=== PATIENT | female | born 1935 | race Caucasian/White ===

== ENCOUNTER 2018-09-19 16:59 | Inpatient (IN) | payer MEDICARE, BC ==
[~2018-09-19] VITALS: Ht 172.7 cm; Wt 99.1 kg
[2018-09-19] MEDS ORDERED: RENVELA800 MG PO (17:07)
[2018-09-19] MEDS ORDERED: KLOR-CON 1010 MEQ PO (17:07)
[2018-09-19] MEDS ORDERED: RANITIDINE HCL150 M1 PO (17:07)
[2018-09-19] MEDS ORDERED: ELIQUIS2.5 MG PO (17:07)
[2018-09-19] MEDS ORDERED: ZYLOPRIM300 MG PO (17:07)
[2018-09-19] MEDS ORDERED: VENTOLIN HFA18 GM INH (17:07)
[2018-09-19] MEDS ORDERED: TORSEMIDE20 MG PO (17:08)
[2018-09-19] MEDS ORDERED: HYDROCODON-ACE1 EAC7 PO (17:08)
[2018-09-19] MEDS ORDERED: HYDROXYZINE HCL10 MG PO (17:08)
[2018-09-19] MEDS ORDERED: SYNTHROID25 MCG PO (17:09)
[2018-09-19 18:19] VITALS: BP 163/68
[2018-09-19] MEDS ORDERED: COREG12.5 MG PO (20:49)
[2018-09-19] MEDS ORDERED: FISH OIL 1,0001 CA1 PO (20:49)
[2018-09-19 21:39] VITALS: BP 166/65
[2018-09-19 22:31] VITALS: BMI 36.5
[2018-09-20 04:00] VITALS: BP 150/63
[2018-09-20 06:24] LABS: BASOPHILS 1.1 % (0-2); EOSINOPHILS 3.4 % (0-7); HEMATOCRIT 30.3 % (36.0-48.0); HEMOGLOBIN 9.4 g/dL (12-16); IMMATURE GRANULOCYTES 0.2 % (0-5); MCH 30.3 pg (26.0-34.0); MCV 97.7 fL (80.0-100.0); MEAN PLATELET VOLUME 11.8 fL (7.4-10.4); MONOCYTES 11.6 % (2-11); NEUTROPHILS 67.7 % (40-80); PLATELET COUNT 121 10x3/uL (130-400); WBC 4.8 10x3/uL (4.8-10.8)
[2018-09-20 07:22] LABS: ANION GAP 17.1 mmol/L (8-16); CALCIUM 10.3 mg/dL (8.5-10.1); CARBON DIOXIDE 25.1 mmol/L (21.0-32.0); CREATININE - SERUM 3.9 mg/dL (0.6-1.3); PHOSPHOROUS 3.3 mg/dL (2.5-4.9); POTASSIUM - SERUM 4.2 mmol/L (3.5-5.1); THYROID STIMULATING HORMONE 3.87 uIU/mL (0.36-3.74)
[2018-09-20 07:36] VITALS: BP 153/62
[2018-09-20 11:12] VITALS: BP 106/89
[2018-09-20 15:13] VITALS: BP 147/58
[2018-09-20 20:00] VITALS: BP 135/71
[2018-09-21 04:00] VITALS: BP 142/70
[2018-09-21 05:25] LABS: EOSINOPHILS 5.5 % (0-7); HEMATOCRIT 33.3 % (36.0-48.0); HEMOGLOBIN 10.1 g/dL (12-16); IMMATURE GRANULOCYTES 0.2 % (0-5); LYMPHOCYTES 16.8 % (15-50); MCH 30.1 pg (26.0-34.0); MCHC 30.3 g/dL (31.0-37.0); MCV 99.1 fL (80.0-100.0); MEAN PLATELET VOLUME 12.1 fL (7.4-10.4); MONOCYTES 11.5 % (2-11); PLATELET COUNT 126 10x3/uL (130-400); RBC 3.36 10x6/uL (4.00-5.40); RDW 16.2 % (11.5-14.5); WBC 4.9 10x3/uL (4.8-10.8)
[2018-09-21 05:53] LABS: ANION GAP 12.8 mmol/L (8-16); CALCIUM 10.4 mg/dL (8.5-10.1); CARBON DIOXIDE 27.2 mmol/L (21.0-32.0); CREATININE - SERUM 3.7 mg/dL (0.6-1.3); PHOSPHOROUS 3.4 mg/dL (2.5-4.9)
[2018-09-21 07:32] VITALS: BP 172/76
[2018-09-21 11:30] VITALS: BP 148/64
[2018-09-21 12:36] VITALS: Ht 172.7 cm; Wt 99.1 kg
[2018-09-21 15:01] VITALS: BP 165/69
[2018-09-21 20:54] VITALS: BP 160/76
[2018-09-22] VITALS: BP 147/79
[2018-09-22 05:08] VITALS: BP 136/71
[2018-09-22 06:01] LABS: BASOPHILS 1.3 % (0-2); EOSINOPHILS 6.1 % (0-7); HEMATOCRIT 32.7 % (36.0-48.0); IMMATURE GRANULOCYTES 0.4 % (0-5); LYMPHOCYTES 16.9 % (15-50); MCHC 30.6 g/dL (31.0-37.0); MCV 98.2 fL (80.0-100.0); MONOCYTES 11.4 % (2-11); NEUTROPHILS 63.9 % (40-80); PLATELET COUNT 128 10x3/uL (130-400); RBC 3.33 10x6/uL (4.00-5.40); RDW 15.8 % (11.5-14.5); WBC 4.6 10x3/uL (4.8-10.8)
[2018-09-22 06:16] LABS: ANION GAP 13.9 mmol/L (8-16); CALCIUM 10.3 mg/dL (8.5-10.1); CARBON DIOXIDE 27.8 mmol/L (21.0-32.0); CREATININE - SERUM 3.8 mg/dL (0.6-1.3); PHOSPHOROUS 2.9 mg/dL (2.5-4.9); POTASSIUM - SERUM 3.7 mmol/L (3.5-5.1)
[2018-09-22 09:08] VITALS: BP 136/73
[2018-09-22 12:48] VITALS: BP 155/60
--- NOTE | 2018-09-22 13:57 | EC ---
PATIENT:MAYTE QUEEN DATE OF SERVICE: 09/19/18 SEX: F MEDICAL RECORD: [id number] DATE OF : 33 LOCATION:D.M2 D.212 AGE OF PATIENT: 83 ADMISSION DATE: 09/19/18 REFERRING PHYSICIAN: INTERPRETING PHYSICIAN: AVELINO ROD MD ECHOCARDIOGRAM REPORT ECHO CHARGES 4 ECHO COMPLETE Date: 09/20/18 CLINICAL DIAGNOSIS: CHF ECHOCARDIOGRAPHIC MEASUREMENTS (adult normal given) AC root (d.<3.7cm) 3.4 cm LV Septum d (<1.2 cm> 0.9 cm Valve Excursion 1.5 cm LV Septum (systole) 1.3 cm Left Atria (s.<4.0cm> 4.1 cm LVPW d(<1.2cm) 0.9 cm RV (d.<2.3cm) 3.8 cm LVPW (sytole) 1.0 cm LV diastole(<5.6CM) 5.9 cm MV E-F(>70mm/sec) cm LV systole 5.2 cm LVOT Diameter 1.9 cm MV exc.(>10mm) cm Est.ejection fraction (50-75%) % DOPPLER: LVIT cm/sec A 40 cm/sec E 123 cm/sec LA cm/sec RVSP 51.9 mmHg LVOT 83 cm/sec AOP1/2T m/s Asc. Ao 149 cm/sec RVOT 68 cm/sec RA cm/sec PA 81 cm/sec AV Gradient Peak 8.9 mmHg AV Mean 5.0 mmHg AV Area 1.5 cm MV Gradient Peak 7.7 mmHg MV Mean 3.1 mmHg MV Area cm COMMENTS: Log Raft Worker: Aayush LAWSON Photographer'S Model: 3 Dr. Ricardo TAPE# PACS Pericardial Effusion N DATE OF SERVICE: Adequate 2D Echo, Color Flow, Spectral Doppler, and M-Mode No LVH. LV internal dimensions are normal. Wall motion is normal. EF is greater than or equal to 55%. Aortic valve is tricuspid. No stenosis by Doppler interrogation. Left atrium is in the upper limits of normal, mildly dilated at 4.1 cm. Mitral valve shows no prolapse. Iptt-ke-wtydcnyu MR. Right sided chambers are normal. Mild TR with color flow imaging. ECHOCARDIOGRAM REPORT [id number] MAYTE QUEEN TRANSINT:[id number] Voice Confirmation ID: [id number] DOCUMENT ID: [id number] AVELINO ROD MD at 1357 CC: [id number] DICTATION DATE: 09/21/18 013 ELECTRIC POWER LINE REPAIRER: 09/21/18 0433 ADM IN [place] [id number] [place] [id number]
[2018-09-22 21:41] VITALS: BP 184/81
[2018-09-23 01:23] VITALS: BP 159/73
[2018-09-23 05:44] VITALS: BP 170/71
[2018-09-23 09:17] LABS: EOSINOPHILS 6.3 % (0-7); HEMATOCRIT 32.6 % (36.0-48.0); LYMPHOCYTES 16.6 % (15-50); MCH 30.1 pg (26.0-34.0); MCHC 30.7 g/dL (31.0-37.0); MCV 98.2 fL (80.0-100.0); MEAN PLATELET VOLUME 11.9 fL (7.4-10.4); MONOCYTES 10.8 % (2-11); NEUTROPHILS 65.3 % (40-80); PLATELET COUNT 120 10x3/uL (130-400); RBC 3.32 10x6/uL (4.00-5.40); RDW 15.8 % (11.5-14.5); WBC 4.2 10x3/uL (4.8-10.8)
[2018-09-23 09:31] LABS: ANION GAP 12.4 mmol/L (8-16); CALCIUM 10.1 mg/dL (8.5-10.1); CARBON DIOXIDE 30.2 mmol/L (21.0-32.0); CREATININE - SERUM 3.6 mg/dL (0.6-1.3); PHOSPHOROUS 3.1 mg/dL (2.5-4.9); POTASSIUM - SERUM 3.6 mmol/L (3.5-5.1)
[2018-09-23 15:21] LABS: SPE - A/G RATIO 1.5 (0.7-1.7); SPE - ALBUMIN 3.2 g/dL (2.9-4.4); SPE - ALPHA-1 GLOBULIN 0.3 g/dL (0.0-0.4); SPE - ALPHA-2 GLOBULIN 0.5 g/dL (0.4-1.0); SPE - BETA GLOBULIN 0.8 g/dL (0.7-1.3); SPE - GAMMA GLOBULIN 0.5 g/dL (0.4-1.8); SPE - M-SPIKE Not Observed g/dL (Not Observed); SPE - TOTAL PROTEIN 5.3 g/dL (6.0-8.5)
--- NOTE | 2018-09-23 18:26 | MORECARE ---
CASE MANAGEMENT DISCHARGE SUMMARY PATIENT: MAYTE QUEEN UNIT: [id number] ADM DATE: 09/19/18 AGE: 83 : 34 SEX: F ROOM/BED: D.Pending [facility] to [facility] AUTHOR: JAKUB ROLLINS PHYSICIAN: REFERRING PHYSICIAN: JORGE ALBERTO PRESLEY MD DATE OF SERVICE: 09/23/18 Discharge Plan Patient Name: MAYTE QUEEN Facility: [facility]:[place] : 1935 Planned Disposition: Inpatient Rehab Anticipated Discharge Date: 09/26/18 Discharge Date: Expected LOS: 7 Initial Reviewer: [email or web address] Initial Review Date: 09/19/2018 Generated: 09/23/18 7:26 pm DCPIA - Discharge Planning Initial Assessment Updated by STACEY: Gilberto Patel on 09/23/18 6:22 pm * Is the patient Alert and Oriented? Yes * How many steps to enter\exit or inside your home? RAMP * PCP DR. GROVER IN [place] * Pharmacy [facility] IN [place] * Preadmission Environment Home with Family * ADLs Independent * Equipment Nebulizer Oxygen Walker Wheelchair * Other Equipment HOME AND PORTABLE OXYGEN [facility] [employer] - OXYGEN PROVIDER * List name and contact numbers for known caregivers / representatives who currently or will assist patient after discharge: GERHARDAileen FAYE, R, * Verbal permission to speak to the caregivers and representatives has been obtained from the patient. Yes * Community resources currently utilized None * Please name any agencies selected above. NONE * Additional services required to return to the preadmission environment? Yes * Can the patient safely return to the preadmission environment? Yes * Has this patient been hospitalized within the prior 30 days at any hospital? No External Providers External Provider: OTHER-OTHER Next Contact Date: 09/24/2018 Service Request Date: Service Type: Resolution: Reviewer: Comments: Coverage Notice Reviewer: [id number] - Gilberto Patel Notice Issued Date-Time: 09/23/2018 17:10 Notice Type: IM Discharge Notice Notice Delivered To: Family Member Relationship to Patient: Daughter Supervisor Graphite Name: GERHARD LAZCANO Delivery Method: HAND - Hand Delivered Joyce Days: Prior Verbal Notification: Recipient Understood Notice: Yes Recipient Signature: Yes Med Rec Note Co-signed by Attending: Coverage Notice Comment: Patient Name: MAYTE QUEEN Page [id number] at 1826 All edits/amendments must be made on the electronic document DICTATION DATE: 09/23/181825 PIG LEAD MELTER HELPER: SISSY 09/23/181825 RPT#: [id number] DC DATE: STATUS: ADM IN [facility] [address] [place] [address] END OF REPORT
--- NOTE | 2018-09-23 18:34 | MORECARE ---
CASE MANAGEMENT DISCHARGE SUMMARY PATIENT: MAYTE QUEEN UNIT: [id number] ADM DATE: 09/19/18 AGE: 83 : 34 SEX: F ROOM/BED: D.0717 AUTHOR: JAKUB ROLLINS PHYSICIAN: REFERRING PHYSICIAN: JORGE ALBERTO ARIAS MD DATE OF SERVICE: 09/23/18 Discharge Plan Patient Name: MAYTE QUEEN Facility: [facility]:[place] : 1935 Planned Disposition: Inpatient Rehab Anticipated Discharge Date: 09/26/18 Discharge Date: Expected LOS: 7 Initial Reviewer: [id number] Initial Review Date: 09/19/2018 Generated: 09/23/18 7:34 pm Comments DCP- Discharge Planning Updated by [email or web address]: Gilberto Patel on 09/23/18 5:[address] Patient Name: MAYTE QUEEN Admission Status: ER Accout number: [id number] Admission Date: 09-19-2018 : 1935 Admission Diagnosis:ACUTE SYSTOLIC (CONGESTIVE) HEART FAILURE Attending: Jorge Alberto Arias Current LOS: 4 Anticipated DC Date: 09-26-2018 Planned Disposition: Inpatient Rehab Primary Insurance: MEDICAID [place] PLANNED EXTERNAL PROVIDER: [facility], [place] Discharge Planning Comments: CM RECEIVED REQUEST TO MEET WITH PT'S DAUGHTERGERHARD IN ROOM. CM MET WITH PT AND DAUGHTER GERHARD IN ROOM TO DISCUSS DISCHARGE PLANNING AND NEEDS. MAYTE QUEEN provided verbal consent to discuss current and ongoing needs with/in the presence of: DAUGHTERGERHARD. GERHARD REPORTS THE DOCTOR TOLD HER THAT PT MAY DISCHARGE TOMORROW TO INPATIENT REHAB AND THEY WOULD LIKE TO GET PT INTO REHAB AT [facility]. PT REPORTS LIVING AT HOME INDEPENDENTLY WITH HER SPOUSE. PT HAS CANE, HOME AND PORTABLE OXYGEN, NEBULIZER, WHEELCHAIR AND WALKER FROM [facility]. PT HAS NO OUTSIDE SERVICES ASSISTING IN THE HOME. CM DISCUSSED AVAILABILITY OF HOME HEALTH, REHAB SERVICES AND MEDICAL EQUIPMENT. PT WANTS REHAB CLOSE TO HOME IN [place] AT [facility]. IMPORTANT MESSAGE FROM MEDICARE PROVIDED AND EXPLAINED. CM FAXED REFERRAL TO [facility], . CM CALLED [facility], . SCREENER, TORSTEN IS ON VACATION. CM SPOKE TO NURSE RUIZ WHO INFORMED CM THAT THEY DO NOT HAVE ADMINISTRATIVE AND SCREENING STAFF ON WEEKENDS AND WILL REVIEW FOR REHAB PLACEMENT ON 09-26-18. FOLLOW UP PERSON AT INPATIENT REHAB ON WEDNESDAY WILL BE RADHA [phone]. [facility] CANNOT SCREEN FOR ADMISSION UNTIL 09-26-18. CM TO CONTINUE TO FOLLOW AND ASSIST NEEDED. Client Architect: Gilberto Patel DCPIA - Discharge Planning Initial Assessment Updated by [id number]: Gilberto Patel on 09/23/18 6:22 pm * Is the patient Alert and Oriented? Yes * How many steps to enter\exit or inside your home? RAMP * PCP DR. GROVER IN [place] * Pharmacy [facility] IN [place] * Preadmission Environment Home with Family * ADLs Independent * Equipment Nebulizer Oxygen Walker Wheelchair * Other Equipment HOME AND PORTABLE OXYGEN [employer] [employer] - OXYGEN PROVIDER * List name and contact numbers for known caregivers / representatives who currently or will assist patient after discharge: GERHARDAileen FAYE, DTR, * Verbal permission to speak to the caregivers and representatives has been obtained from the patient. Yes * Community resources currently utilized None * Please name any agencies selected above. NONE * Additional services required to return to the preadmission environment? Yes * Can the patient safely return to the preadmission environment? Yes * Has this patient been hospitalized within the prior 30 days at any hospital? No Coverage Notice Reviewer: [id number] - Gilberto Patel Notice Issued Date-Time: 09/23/2018 17:10 Notice Type: IM Discharge Notice Notice Delivered To: Family Member Relationship to Patient: Daughter Glass Edger Name: GERHARD LAZCANO Delivery Method: HAND - Hand Delivered Joyce Days: Prior Verbal Notification: Recipient Understood Notice: Yes Recipient Signature: Yes Med Rec Note Co-signed by Attending: Coverage Notice Comment: Last DP export: 09/23/18 5:26 pm Patient Name: MAYTE QUEEN Page 41581 at 1834 All edits/amendments must be made on the electronic document DICTATION DATE: 09/23/181833 DEFECTIVE CIGARETTE SLITTER: SISSY 09/23/181833 RPT#: [id number] DC DATE: STATUS: ADM IN [facility] [address] [place] [address] END OF REPORT
[2018-09-23 20:00] VITALS: BP 178/87
[2018-09-24] VITALS (8 sets, daily range): BP systolic 139–199; BP diastolic 59–90
[2018-09-24 06:06] LABS: BASOPHILS 0.7 % (0-2); EOSINOPHILS 6.3 % (0-7); HEMATOCRIT 32.4 % (36.0-48.0); IMMATURE GRANULOCYTES 0.2 % (0-5); LYMPHOCYTES 14.8 % (15-50); MCH 30.2 pg (26.0-34.0); MCHC 30.9 g/dL (31.0-37.0); MCV 97.9 fL (80.0-100.0); MEAN PLATELET VOLUME 12.1 fL (7.4-10.4); PLATELET COUNT 128 10x3/uL (130-400); RBC 3.31 10x6/uL (4.00-5.40); RDW 15.5 % (11.5-14.5); WBC 4.5 10x3/uL (4.8-10.8)
[2018-09-24 06:36] LABS: ANION GAP 14.1 mmol/L (8-16); CALCIUM 10.1 mg/dL (8.5-10.1); CARBON DIOXIDE 28.4 mmol/L (21.0-32.0); CREATININE - SERUM 3.6 mg/dL (0.6-1.3); PHOSPHOROUS 2.5 mg/dL (2.5-4.9); POTASSIUM - SERUM 3.5 mmol/L (3.5-5.1)
[2018-09-24 08:38] LABS: CREATININE - URINE 50.8 mg/dL (30-125); PROTEIN - URINE 83.7 mg/dL (0.0-11.9)
[2018-09-24 08:39] LABS: APPEARANCE CLOUDY (CLEAR); BILIRUBIN NEGATIVE (NEGATIVE); COLOR YELLOW (YELLOW); GLUCOSE NEGATIVE (NEGATIVE); KETONE NEGATIVE (NEGATIVE); NITRITE NEGATIVE (NEGATIVE); PROTEIN 2+ mg/dL (NEGATIVE); UROBILINOGEN NORMAL (NORMAL)
[2018-09-24 08:41] LABS: BACTERIA MANY /hpf (NONE SEEN); EPITHELIAL CELLS 0-5 /hpf (0-5); RED CELLS - URINE 0-5 /hpf (0-5)
[2018-09-25 00:30] VITALS: BP 182/71
[2018-09-25 04:45] VITALS: BP 172/80
[2018-09-25 11:38] VITALS: BP 161/89
[2018-09-25 16:28] VITALS: BP 142/61
[2018-09-25 21:20] VITALS: BP 165/73
[2018-09-26 00:57] VITALS: BP 186/71
[2018-09-26 05:53] VITALS: BP 163/71
[2018-09-26 07:13] LABS: ANION GAP 14.1 mmol/L (8-16); CALCIUM 9.2 mg/dL (8.5-10.1); CARBON DIOXIDE 27.2 mmol/L (21.0-32.0); CREATININE - SERUM 3.4 mg/dL (0.6-1.3); POTASSIUM - SERUM 3.3 mmol/L (3.5-5.1)
[2018-09-26 07:30] LABS: BASOPHILS 0.8 % (0-2); EOSINOPHILS 5.1 % (0-7); HEMOGLOBIN 9.8 g/dL (12-16); IMMATURE GRANULOCYTES 0.2 % (0-5); LYMPHOCYTES 15.7 % (15-50); MCH 30.5 pg (26.0-34.0); MCHC 31.6 g/dL (31.0-37.0); MCV 96.6 fL (80.0-100.0); MEAN PLATELET VOLUME 12.4 fL (7.4-10.4); MONOCYTES 13.8 % (2-11); NEUTROPHILS 64.4 % (40-80); PLATELET COUNT 131 10x3/uL (130-400); RBC 3.21 10x6/uL (4.00-5.40); RDW 15.3 % (11.5-14.5); WBC 4.9 10x3/uL (4.8-10.8)
[2018-09-26 08:41] VITALS: BP 151/76
[2018-09-26] MEDS ORDERED: SENSIPAR30 MG PO (09:09)
--- NOTE | 2018-09-26 10:59 | MORECARE ---
CASE MANAGEMENT DISCHARGE SUMMARY PATIENT: MAYTE QUEEN UNIT: [id number] ADM DATE: 09/19/18 AGE: 83 : 34 SEX: F ROOM/BED: D.[facility] AUTHOR: JAKUB ROLLINS PHYSICIAN: REFERRING PHYSICIAN: JORGE ALBERTO ARIAS MD DATE OF SERVICE: 09/26/18 Discharge Plan Patient Name: MAYTE QUEEN Facility: [facility]:[place] : 1935 Planned Disposition: Inpatient Rehab Anticipated Discharge Date: 09/26/18 Discharge Date: Expected LOS: 7 Initial Reviewer: [email or web address] Initial Review Date: 09/19/2018 Generated: 09/26/18 11:59 am Comments DCP- Discharge Planning Updated by [email or web address]: Gilberto Patel on 09/26/18 9:[address] Patient Name: MAYTE QUEEN Encounter No: [id number] : 1935 Primary Insurance: MEDICARE A & B Anticipated DC Date: 09-26-2018 Planned Disposition: Inpatient Rehab External Planned Provider: [facility], MEDICARE REHAB BED DCP follow-up note: CM SPOKE TO DR. ARIAS WHO INFORMED CM THAT HE IS READY TO DSICHARGE PT ONCE ACCEPTED TO REHAB. CM RECEIVED CALL FROM GERHARD URIBE, PT'S DAUGHTER, IN ROOM, WHO ASKED FOR UPDATE. CM PROVIDED UPDATE. GERHARD REPORTS SHE AND PATIENT ARE READY TO DISCHARGE TO REHAB TODAY. CM FAXED REFERRAL UPDATE TO [facility] IN[facility], . CM CALLED [facility], . TORSTEN AMIN WILL TRY TO EXPEDITE THE SCREENING FOR REHAB PLACEMENT TODAY, 09-26-18. CM WAITING ADMISSION DETERMINATION FROM [facility]. MONA Mcdowell DCP- Discharge Planning Updated by [email or web address]: Gilberto Patel on 09/23/18 5:[address] Patient Name: MAYTE QUEEN Admission Status: ER Accout number: [id number] Admission Date: 09-19-2018 : 1935 Admission Diagnosis:ACUTE SYSTOLIC (CONGESTIVE) HEART FAILURE Attending: Jorge Alberto Arias Current LOS: 4 Anticipated DC Date: 09-26-2018 Planned Disposition: Inpatient Rehab Primary Insurance: MEDICAID [place] PLANNED EXTERNAL PROVIDER: [facility], [place] Discharge Planning Comments: CM RECEIVED REQUEST TO MEET WITH PT'S DAUGHTER, GERHARD IN ROOM. CM MET WITH PT AND DAUGHTER GERHARD IN ROOM TO DISCUSS DISCHARGE PLANNING AND NEEDS. MAYTE QUEEN provided verbal consent to discuss current and ongoing needs with/in the presence of: DAUGHTERGERHARD. GERHARD REPORTS THE DOCTOR TOLD HER THAT PT MAY DISCHARGE TOMORROW TO INPATIENT REHAB AND THEY WOULD LIKE TO GET PT INTO REHAB AT [facility]. PT REPORTS LIVING AT HOME INDEPENDENTLY WITH HER SPOUSE. PT HAS CANE, HOME AND PORTABLE OXYGEN, NEBULIZER, WHEELCHAIR AND WALKER FROM [facility]PIRAT[facility]. PT HAS NO OUTSIDE SERVICES ASSISTING IN THE HOME. CM DISCUSSED AVAILABILITY OF HOME HEALTH, REHAB SERVICES AND MEDICAL EQUIPMENT. PT WANTS REHAB CLOSE TO HOME IN [place] AT [facility]. IMPORTANT MESSAGE FROM MEDICARE PROVIDED AND EXPLAINED. CM FAXED REFERRAL TO [facility], . CM CALLED [facility] IN[facility] RE[facility], . SCREENER, TORSTEN IS ON VACATION. CM SPOKE TO NURSE RUIZ WHO INFORMED CM THAT THEY DO NOT HAVE ADMINISTRATIVE AND SCREENING STAFF ON WEEKENDS AND WILL REVIEW FOR REHAB PLACEMENT ON 09-26-18. FOLLOW UP PERSON AT INPATIENT REHAB ON WEDNESDAY WILL BE RADHA, . [facility] CANNOT SCREEN FOR ADMISSION UNTIL 09-26-18. CM TO CONTINUE TO FOLLOW AND ASSIST NEEDED. Label Designer: Gilberto Patel DCPIA - Discharge Planning Initial Assessment Updated by [id number]: Gilberto Patel on 09/23/18 6:22 pm * Is the patient Alert and Oriented? Yes * How many steps to enter\exit or inside your home? RAMP * PCP DR. GROVER IN [place] * Pharmacy [facility] IN [place] * Preadmission Environment Home with Family * ADLs Independent * Equipment Nebulizer Oxygen Walker Wheelchair * Other Equipment HOME AND PORTABLE OXYGEN [facility] * List name and contact numbers for known caregivers / representatives who currently or will assist patient after discharge: GERHARD FAYE, DTR, * Verbal permission to speak to the caregivers and representatives has been obtained from the patient. Yes * Community resources currently utilized None * Please name any agencies selected above. NONE * Additional services required to return to the preadmission environment? Yes * Can the patient safely return to the preadmission environment? Yes * Has this patient been hospitalized within the prior 30 days at any hospital? No Coverage Notice Reviewer: [id number] Paul Patel Notice Issued Date-Time: 09/23/2018 17:10 Notice Type: IM Discharge Notice Notice Delivered To: Family Member Relationship to Patient: Daughter Neon Tube Pumper Name: GERHARD LAZCANO Delivery Method: HAND - Hand Delivered Joyce Days: Prior Verbal Notification: Recipient Understood Notice: Yes Recipient Signature: Yes Med Rec Note Co-signed by Attending: Coverage Notice Comment: Last DP export: 09/23/18 5:34 pm Patient Name: MAYTE QUEEN Page 44143 at 1059 All edits/amendments must be made on the electronic document DICTATION DATE: 09/26/18 105 DECK CADET: SISSY 09/26/18 1058 RPT#: [id number] DC DATE: STATUS: ADM IN [facility] [address] [place] [address] END OF REPORT
[2018-09-26 11:43] VITALS: BP 121/76
--- NOTE | 2018-09-26 13:44 | MORECARE ---
CASE MANAGEMENT DISCHARGE SUMMARY PATIENT: MAYTE QUEEN UNIT: [id number] ADM DATE: 09/19/18 AGE: 83 : 34 SEX: F ROOM/BED: D.2121 AUTHOR: JAKUB ROLLINS PHYSICIAN: REFERRING PHYSICIAN: JORGE ALBERTO ARIAS MD DATE OF SERVICE: 09/26/18 Discharge Plan Patient Name: MAYTE QUEEN Facility: [facility]:[place] : 1935 Planned Disposition: Inpatient Rehab Anticipated Discharge Date: 09/26/18 Discharge Date: Expected LOS: 7 Initial Reviewer: [id number] Initial Review Date: 09/19/2018 Generated: 09/26/18 2:44 pm Comments DCP- Discharge Planning Updated by [id number]: Gilberto Patel on 09/26/18 12:[address] Patient Name: MAYTE QUEEN Encounter No: [id number] : 1935 Primary Insurance: MEDICARE A & B Anticipated DC Date: 09-26-2018 Planned Disposition: Inpatient Rehab External Planned Provider: [facility] DCP follow-up note: CM RECEIVED CALL FROM OF [facility], THEY WILL ACCEPT PT TODAY, ACCEPTING PHYSICIAN IS DR. VIVAS. CM NOTIFIED PT AND DAUGHTER IN ROOM, BOTH IN AGREEMENT FOR DISCHARGE TO REHAB TODAY. DAUGHTER TO TRANSPORT AND HAS PORTABLE OXYGEN FOR TRANSPORTATION TODAY. IMPORTANT MESSAGE FROM MEDICARE PROVIDED AND EXPLAINED. CREAM GATHERER NURSE NOTIFIED. BEDSIDE NURSE NOTIFIED. NURSE REPORT TO BE CALLED TO [facility] OUT[facility], . DAUGHTER TO TRANSPORT AND HAS PORTABLE OXYGEN FOR TRANSPORT TODAY. Gilberto Patel, CASE MANAGEMENT DCP- Discharge Planning Updated by [id number]: Gilberto Patel on 09/26/18 9:[address] Patient Name: MAYTE QUEEN Encounter No: [id number] : 1935 Primary Insurance: MEDICARE A & B Anticipated DC Date: 09-26-2018 Planned Disposition: Inpatient Rehab External Planned Provider: [facility], MEDICARE REHAB BED DCP follow-up note: CM SPOKE TO DR. ARIAS WHO INFORMED CM THAT HE IS READY TO DSICHARGE PT ONCE ACCEPTED TO REHAB. CM RECEIVED CALL FROM GERHARD LOPEZSTEPHANIE, PT'S DAUGHTER, IN ROOM, WHO ASKED FOR UPDATE. CM PROVIDED UPDATE. GERHARD REPORTS SHE AND PATIENT ARE READY TO DISCHARGE TO REHAB TODAY. CM FAXED REFERRAL UPDATE TO [facility] IN[facility], . CM CALLED [facility] INPAT[facility] RE[facility], . TORSTEN AMIN WILL TRY TO EXPEDITE THE SCREENING FOR REHAB PLACEMENT TODAY, 09-26-18. CM WAITING ADMISSION DETERMINATION FROM [facility]. Gilberto Patel, CASE MANAGEMENT DCP- Discharge Planning Updated by [id number]: Gilberto Patel on 09/23/18 5:[address] Patient Name: MAYTE QUEEN Admission Status: ER Accout number: [id number] Admission Date: 09-19-2018 : 1935 Admission Diagnosis:ACUTE SYSTOLIC (CONGESTIVE) HEART FAILURE Attending: Jorge Alberto Arias Current LOS: 4 Anticipated DC Date: 09-26-2018 Planned Disposition: Inpatient Rehab Primary Insurance: MEDICAID [place] PLANNED EXTERNAL PROVIDER: [facility], [place] Discharge Planning Comments: CM RECEIVED REQUEST TO MEET WITH PT'S DAUGHTER, GERHARD IN ROOM. CM MET WITH PT AND DAUGHTER GERHARD IN ROOM TO DISCUSS DISCHARGE PLANNING AND NEEDS. MAYTE QUEEN provided verbal consent to discuss current and ongoing needs with/in the presence of: DAUGHTERGERHARD. GERHARD REPORTS THE DOCTOR TOLD HER THAT PT MAY DISCHARGE TOMORROW TO INPATIENT REHAB AND THEY WOULD LIKE TO GET PT INTO REHAB AT [facility]. PT REPORTS LIVING AT HOME INDEPENDENTLY WITH HER SPOUSE. PT HAS CANE, HOME AND PORTABLE OXYGEN, NEBULIZER, WHEELCHAIR AND WALKER FROM [facility]. PT HAS NO OUTSIDE SERVICES ASSISTING IN THE HOME. CM DISCUSSED AVAILABILITY OF HOME HEALTH, REHAB SERVICES AND MEDICAL EQUIPMENT. PT WANTS REHAB CLOSE TO HOME IN [place] AT THE [facility]. IMPORTANT MESSAGE FROM MEDICARE PROVIDED AND EXPLAINED. CM FAXED REFERRAL TO [facility], . CM CALLED [facility], . SCREENER, MJ IS ON VACATION. CM SPOKE TO NURSE SARA WHO INFORMED CM THAT THEY DO NOT HAVE ADMINISTRATIVE AND SCREENING STAFF ON WEEKENDS AND WILL REVIEW FOR REHAB PLACEMENT ON 09-26-18. FOLLOW UP PERSON AT INPATIENT REHAB ON WEDNESDAY WILL BE RADHA [phone]. [facility] CANNOT SCREEN FOR ADMISSION UNTIL 09-26-18. CM TO CONTINUE TO FOLLOW AND ASSIST NEEDED. Donkey Ride Operator: Gilberto Patel DCPIA - Discharge Planning Initial Assessment Updated by STACEY: Gilberto Patel on 09/23/18 6:22 pm * Is the patient Alert and Oriented? Yes * How many steps to enter\exit or inside your home? RAMP * PCP DR. GROVER IN [place] * Pharmacy [facility] IN [place] * Preadmission Environment Home with Family * ADLs Independent * Equipment Nebulizer Oxygen Walker Wheelchair * Other Equipment HOME AND PORTABLE OXYGEN [employer] - OXYGEN PROVIDER * List name and contact numbers for known caregivers / representatives who currently or will assist patient after discharge: GERHARDAileen FAYE, R, * Verbal permission to speak to the caregivers and representatives has been obtained from the patient. Yes * Community resources currently utilized None * Please name any agencies selected above. NONE * Additional services required to return to the preadmission environment? Yes * Can the patient safely return to the preadmission environment? Yes * Has this patient been hospitalized within the prior 30 days at any hospital? No Coverage Notice Reviewer: [id number] Patel Notice Issued Date-Time: 09/23/2018 17:10 Notice Type: IM Discharge Notice Notice Delivered To: Family Member Relationship to Patient: Daughter Ict Customer Support Officer Name: GERHARD LAZCANO Delivery Method: HAND - Hand Delivered Joyce Days: Prior Verbal Notification: Recipient Understood Notice: Yes Recipient Signature: Yes Med Rec Note Co-signed by Attending: Coverage Notice Comment: Reviewer: [email or web address] Patel Notice Issued Date-Time: 09/26/2018 12:30 Notice Type: IM Discharge Notice Notice Delivered To: Patient Relationship to Patient: Ict Customer Support Officer Name: Delivery Method: HAND - Hand Delivered Joyce Days: Prior Verbal Notification: Recipient Understood Notice: Yes Recipient Signature: Yes Med Rec Note Co-signed by Attending: Coverage Notice Comment: Last DP export: 09/26/18 9:59 am Patient Name: MAYTE QUEEN Page [phone] at 1344 All edits/amendments must be made on the electronic document DICTATION DATE: 09/26/181342 CUSTOMER ACCOUNT EXECUTIVE: SISSY 09/26/18 134 RPT#: [id number] DC DATE: STATUS: ADM IN [facility] [address] [place] [address] END OF REPORT
--- NOTE | 2018-09-27 08:41 | MORECARE ---
CASE MANAGEMENT DISCHARGE SUMMARY PATIENT: MAYTE QUEEN UNIT: [id number] ADM DATE: 09/19/18 AGE: 83 : 34 SEX: F ROOM/BED: D.2121 AUTHOR: JAKUB ROLLINS PHYSICIAN: REFERRING PHYSICIAN: JORGE ALBERTO ARIAS MD DATE OF SERVICE: 09/27/18 Discharge Plan Patient Name: MAYTE QUEEN Facility: [facility]:[place] : 1935 Planned Disposition: Inpatient Rehab Anticipated Discharge Date: 09/27/18 Discharge Date: 09/26/2018 Expected LOS: 8 Initial Reviewer: [id number] Initial Review Date: 09/19/2018 Generated: 09/27/18 9:40 am Comments DCP- Discharge Planning Updated by [id number]: Gilberto Patel on 09/26/18 12:[address] Patient Name: MAYTE QUEEN Encounter No: [id number] : 1935 Primary Insurance: MEDICARE A & B Anticipated DC Date: 09-26-2018 Planned Disposition: Inpatient Rehab External Planned Provider: [facility] DCP follow-up note: CM RECEIVED CALL FROM OF [facility], THEY WILL ACCEPT PT TODAY, ACCEPTING PHYSICIAN IS DR. VIVAS. CM NOTIFIED PT AND DAUGHTER IN ROOM, BOTH IN AGREEMENT FOR DISCHARGE TO REHAB TODAY. DAUGHTER TO TRANSPORT AND HAS PORTABLE OXYGEN FOR TRANSPORTATION TODAY. IMPORTANT MESSAGE FROM MEDICARE PROVIDED AND EXPLAINED. DIRECTOR TRANSPORTATION NURSE NOTIFIED. BEDSIDE NURSE NOTIFIED. NURSE REPORT TO BE CALLED TO [facility] OUT[facility], . DAUGHTER TO TRANSPORT AND HAS PORTABLE OXYGEN FOR TRANSPORT TODAY. Gilberto Patel CASE MANAGEMENT DCP- Discharge Planning Updated by [id number]: Gilberto Patel on 09/26/18 9:[address] Patient Name: MAYTE QUEEN Encounter No: [id number] : 1935 Primary Insurance: MEDICARE A & B Anticipated DC Date: 09-26-2018 Planned Disposition: Inpatient Rehab External Planned Provider: [facility], MEDICARE REHAB BED DCP follow-up note: CM SPOKE TO DR. ARIAS WHO INFORMED CM THAT HE IS READY TO DSICHARGE PT ONCE ACCEPTED TO REHAB. CM RECEIVED CALL FROM GERHARD URIBE, PT'S DAUGHTER, IN ROOM, WHO ASKED FOR UPDATE. CM PROVIDED UPDATE. GERHARD REPORTS SHE AND PATIENT ARE READY TO DISCHARGE TO REHAB TODAY. CM FAXED REFERRAL UPDATE TO [facility] IN[facility] RE[facility], . CM CALLED [facility], . TORSTEN AMIN WILL TRY TO EXPEDITE THE SCREENING FOR REHAB PLACEMENT TODAY, 09-26-18. CM WAITING ADMISSION DETERMINATION FROM [facility]. Gilberto Patel, CASE MANAGEMENT DCP- Discharge Planning Updated by [email or web address]: Gilberto Patel on 09/23/18 5:[address] Patient Name: MAYTE QUEEN Admission Status: ER Accout number: [id number] Admission Date: 09-19-2018 : 1935 Admission Diagnosis:ACUTE SYSTOLIC (CONGESTIVE) HEART FAILURE Attending: Jorge Alberto Arias Current LOS: 4 Anticipated DC Date: 09-26-2018 Planned Disposition: Inpatient Rehab Primary Insurance: [place]ICAID [place] PLANNED EXTERNAL PROVIDER[facility] Discharge Planning Comments: CM RECEIVED REQUEST TO MEET WITH PT'S DAUGHTER, GERHARD IN ROOM. CM MET WITH PT AND DAUGHTER GERHARD IN ROOM TO DISCUSS DISCHARGE PLANNING AND NEEDS. MAYTE QUEEN provided verbal consent to discuss current and ongoing needs with/in the presence of: DAUGHTER, GERHARD. GERHARD REPORTS THE DOCTOR TOLD HER THAT PT MAY DISCHARGE TOMORROW TO INPATIENT REHAB AND THEY WOULD LIKE TO GET PT INTO REHAB AT [facility] IN[facility]. PT REPORTS LIVING AT HOME INDEPENDENTLY WITH HER SPOUSE. PT HAS CANE, HOME AND PORTABLE OXYGEN, NEBULIZER, WHEELCHAIR AND WALKER FROM [facility]. PT HAS NO OUTSIDE SERVICES ASSISTING IN THE HOME. CM DISCUSSED AVAILABILITY OF HOME HEALTH, REHAB SERVICES AND MEDICAL EQUIPMENT. PT WANTS REHAB CLOSE TO HOME IN [place] AT THE [facility]. IMPORTANT MESSAGE FROM MEDICARE PROVIDED AND EXPLAINED. CM FAXED REFERRAL TO [facility] IN[facility], . CM CALLED [facility], . TORSTEN AMIN IS ON VACATION. CM SPOKE TO NURSE SARA WHO INFORMED CM THAT THEY DO NOT HAVE ADMINISTRATIVE AND SCREENING STAFF ON WEEKENDS AND WILL REVIEW FOR REHAB PLACEMENT ON 09-26-18. FOLLOW UP PERSON AT INPATIENT REHAB ON WEDNESDAY WILL BE RADHA [phone]. [facility] CANNOT SCREEN FOR ADMISSION UNTIL 09-26-18. CM TO CONTINUE TO FOLLOW AND ASSIST NEEDED. Caretaker Grounds: Gilberto Patel DCPIA - Discharge Planning Initial Assessment Updated by STACEY: Gilberto Patel on 09/23/18 6:22 pm * Is the patient Alert and Oriented? Yes * How many steps to enter\exit or inside your home? RAMP * PCP DR. GROVER IN [place] * Pharmacy [facility] IN [place] * Preadmission Environment Home with Family * ADLs Independent * Equipment Nebulizer Oxygen Walker Wheelchair * Other Equipment HOME AND PORTABLE OXYGEN [facility] - OXYGEN PROVIDER * List name and contact numbers for known caregivers / representatives who currently or will assist patient after discharge: GERHARD NEYDA, R, * Verbal permission to speak to the caregivers and representatives has been obtained from the patient. Yes * Community resources currently utilized None * Please name any agencies selected above. NONE * Additional services required to return to the preadmission environment? Yes * Can the patient safely return to the preadmission environment? Yes * Has this patient been hospitalized within the prior 30 days at any hospital? No Coverage Notice Reviewer: [id number] Paul Patel Notice Issued Date-Time: 09/23/2018 17:10 Notice Type: IM Discharge Notice Notice Delivered To: Family Member Relationship to Patient: Daughter Linen Grader Name: GERHARD LAZCANO Delivery Method: HAND - Hand Delivered Joyce Days: Prior Verbal Notification: Recipient Understood Notice: Yes Recipient Signature: Yes Med Rec Note Co-signed by Attending: Coverage Notice Comment: Reviewer: [email or web address] Patel Notice Issued Date-Time: 09/26/2018 12:30 Notice Type: IM Discharge Notice Notice Delivered To: Patient Relationship to Patient: Linen Grader Name: Delivery Method: HAND - Hand Delivered Joyce Days: Prior Verbal Notification: Recipient Understood Notice: Yes Recipient Signature: Yes Med Rec Note Co-signed by Attending: Coverage Notice Comment: Last DP export: 09/26/18 12:44 pm Patient Name: MAYTE QUEEN Page [id number] at 0841 All edits/amendments must be made on the electronic document DICTATION DATE: 09/27/18839 911 EMERGENCY DISPATCHER: SISSY 09/27/18839 RPT#: [id number] DC DATE:09/26/18 STATUS: DIS IN [facility] [address] [place] [address] END OF REPORT
[2018-09-28 15:32] LABS: UPE RAND - ALBUMIN 63.8 % (()); UPE RAND - ALPHA 1 GLOBULIN 3.9 % (()); UPE RAND - ALPHA 2 GLOBULIN 8.6 % (()); UPE RAND - BETA GLOBULIN 16.1 % (()); UPE RAND - GAMMA GLOBULIN 7.6 % (())
== END 2018-09-26 15:33 | DRG 291 ==
LOC: D.ER 16:59 → EDBD 16:59 → D.EDHOLD 18:41 → D.M2 18:41 → D.SDCHOLD 09-20 01:09 → D.M2 09-20 01:10
PROVIDERS: ADMIT Internal Medicine Nephrology
DX: I13.0 Hypertensive heart and chronic kidney disease with heart failure and stage 1 through stage 4 chronic kidney disease, or unspecified chronic kidney disease (principal); I50.21 Acute systolic (congestive) heart failure; N18.4 Chronic kidney disease, stage 4 (severe); D63.1 Anemia in chronic kidney disease; J44.9 Chronic obstructive pulmonary disease, unspecified; M79.7 Fibromyalgia; I48.91 Unspecified atrial fibrillation; R41.0 Disorientation, unspecified